=== PATIENT | male | born 1950 | race Caucasian/White ===

== ENCOUNTER → 2018-02-07 | Outpatient (CLI) | payer MEDICARE, OTHER ==
[~2018-02-07] MED LIST: ACETAMINOPHEN650 M5 PO; ADULT LOW DOSE81 MG PO; ARIXTRA; ASPIRIN EC325 M1 PO; ASPIRIN325 PO; BACLOFEN 10MG T10 MG PO; BENADRYL25 MG PO; CHLORPROMAZINE25 M3 PO; COLACE100 MG; COLACE100 MG PO; FERROUS GLUCON325 M4; HYDROCODONE-AP1 EAC6 PO; IRON PO; KEFLEX500 MG PO; METAMUCIL PAC1 UDPKT PO; MIRALAX255 GM; NORFLEX100 MG PO; OXYCODONE HCL 55 MG PO; OXYIR5 MG; PEPCID AC20 M1; PERCOCET 5-3251 EACH; PERCOCET 5-3251 EACH PO; PRILOSEC 20 MG20 MG PO; TOPROL XL25 MG PO; TUMS PO; TYLENOL325 MG PO; XARELTO10 M1 PO; XARELTO10 MG PO; ZOFRAN4 MG PO
== END ==
LOC: M.MRI 06:39
DX: M47.27 Other spondylosis with radiculopathy, lumbosacral region (principal)

== ENCOUNTER → 2018-10-16 | Outpatient (CLI) | payer MEDICARE, OTHER | LOC: M.RAD 13:41 | DX: M19.032 Primary osteoarthritis, left wrist (principal); M25.732 Osteophyte, left wrist; M19.042 Primary osteoarthritis, left hand; M19.041 Primary osteoarthritis, right hand; M19.071 Primary osteoarthritis, right ankle and foot; M19.021 Primary osteoarthritis, right elbow; M19.022 Primary osteoarthritis, left elbow; M76.891 Other specified enthesopathies of right lower limb, excluding foot; M53.3 Sacrococcygeal disorders, not elsewhere classified; M25.571 Pain in right ankle and joints of right foot; M25.572 Pain in left ankle and joints of left foot; M25.511 Pain in right shoulder; M25.512 Pain in left shoulder; M25.552 Pain in left hip ==